=== PATIENT | male | born 1990 | race Two or more races ===

== ENCOUNTER 2019-10-08 10:57 | Emergency (ER) | payer SELFPAY ==
[~2019-10-08] VITALS: Ht 154.9 cm; Wt 79.8 kg
[2019-10-08] MEDS ORDERED: cefTRIAXone SOD 1,000 MG VL IM ONE (15:00)
[2019-10-08] MEDS ORDERED: IBUPROFEN 800 MG TAB PO ONE (15:00)
[2019-10-08 15:07] VITALS: BP 149/93
== END 2019-10-08 15:16 | disposition home or self-care (01) ==
LOC: ER 10:57
DX: L02.31 Cutaneous abscess of buttock (principal)